=== PATIENT | female | born 1975 | race Caucasian/White ===

== ENCOUNTER → 2017-12-15 | Outpatient (CLI) | payer OTHER ==
--- NOTE | 2017-12-15 16:30 | Diagnostic Imaging Report ---
PROCEDURE:US RETROPERITONEAL ( KIDNEY ). COMPARISON:Patients [facility], US, US LIVER, 02/20/2017, 7:45. INDICATIONS:PROTEINURIA TECHNIQUE: Hamm-scale and color sonographic images of the bilateral kidneys and bladder where obtained in transverse and longitudinal planes. FINDINGS: RIGHT KIDNEY: Measures 10.5 cm in length. The cortex is lobulated. Cysts: None Solid masses: None Stones: None Hydronephrosis: None Echogenicity: Normal LEFT KIDNEY: Measures 12.6 cm in length. The cortex is lobulated. Cysts: None Solid masses: None Stones: None Hydronephrosis: 9 Echogenicity: Normal Bladder: Well-distended. Bladder jets are visible. No mural thickening. Survey images of the spleen demonstrate no mass. The spleen measures 13.5 cm in length. Survey images of the liver demonstrate increased echotexture without focal lesion. CONCLUSION: 1. Sonographically normal kidneys and bladder. 2. Increased hepatic echotexture suggestive of steatosis. Dictated by: Loli Olivares M.D. on 12/15/2017 at 16:30 Electronically approved by: Loli Olivares M.D. on 12/15/2017 at 16:30
== END ==
LOC: US 14:42
PROVIDERS: ATTEND Family Medicine
DX: R80.9 Proteinuria, unspecified (principal)
CPT/HCPCS: 76770

== ENCOUNTER → 2018-01-06 | Outpatient (CLI) | payer OTHER ==
--- NOTE | 2018-01-08 15:59 | Diagnostic Imaging Report ---
#[id number] - [id number] #BILATERAL DIGITAL SCREENING MAMMOGRAM WITH CAD: 01/06/2018 CLINICAL: Routine screening. Comparison is made to exam dated: 11/15/2014 mammogram - [facility]. Current study contains 7 films. There are scattered fibroglandular elements in both breasts. Current study was also evaluated with a Computer Aided Detection (CAD) system. There are benign calcifications in both breasts. No significant masses, calcifications, or other findings are seen in either breast. There has been no significant interval change. IMPRESSION: BENIGN There is no mammographic evidence of malignancy. A 1 year screening mammogram is recommended. The patient will be notified by letter of the results. Vinicius brown/yoav:01/08/2018 13:12:18 Roll Picker: Verna DIAS)(M), [facility] letter sent: Compared to Prior B9 Mammogram BI-RADS: 2 Benign
== END ==
LOC: MAMMO 13:29
PROVIDERS: ATTEND Obstetrics & Gynecology
DX: Z12.31 Encounter for screening mammogram for malignant neoplasm of breast (principal)
CPT/HCPCS: 77067

== ENCOUNTER → 2019-03-08 | Outpatient (CLI) | payer OTHER | LOC: MAMMO 08:07 | PROVIDERS: ATTEND Obstetrics & Gynecology | DX: Z12.31 Encounter for screening mammogram for malignant neoplasm of breast (principal) | CPT/HCPCS: 77067 ==

== ENCOUNTER → 2020-12-07 | Outpatient (CLI) | payer OTHER | LOC: MAMMO 12:25 | PROVIDERS: ATTEND Obstetrics & Gynecology | DX: Z12.31 Encounter for screening mammogram for malignant neoplasm of breast (principal) | CPT/HCPCS: 77067 ==

== ENCOUNTER → 2020-12-19 | Outpatient (CLI) | payer OTHER | LOC: MRI 09:20 | PROVIDERS: ATTEND Specialist | DX: S83.222A Peripheral tear of medial meniscus, current injury, left knee, initial encounter (principal) ==

== ENCOUNTER → 2023-10-09 | Outpatient (REF) | payer BC | LOC: MAMMO 13:05 | PROVIDERS: ATTEND Obstetrics & Gynecology | DX: Z12.31 Encounter for screening mammogram for malignant neoplasm of breast (principal) | CPT/HCPCS: 77067 ==

== ENCOUNTER → 2025-03-03 | Outpatient (REF) | payer BC | LOC: MAMMO 12:56 | PROVIDERS: ATTEND Family Medicine | DX: Z12.31 Encounter for screening mammogram for malignant neoplasm of breast (principal) | CPT/HCPCS: 77067 ==